=== PATIENT | female | born 1950 | race Caucasian/White ===

== ENCOUNTER 2018-07-11 20:18 | Observation (INO) | payer BC, SELFPAY ==
[2018-07-11] VITALS (33 sets, daily range): BP systolic 170–207; BP diastolic 81–112; PULSE 75–93; RESP 11–25; TEMP 37.1; O2SAT 94–98
--- NOTE | 2018-07-11 20:36 | DI.RAD_ITS ---
SYMPTOMS/DIAGNOSIS: RIGHT THEN LEFT CHEST PAIN PORTABLE CHEST: There are no prior comparison exams. The heart size is normal. The aorta is mildly tortuous. Leads overlie the chest. There are mild fibrotic changes. No superimposed infiltrate, effusion or pulmonary edema is seen. IMPRESSION: No acute abnormality.
--- NOTE | 2018-07-11 20:37 | W.ED.GENAD ---
Discharge Plan Disposition Patient Disposition: [facility] INPATIENT Condition: Good Discharge Details Chief Complaint: Chest Pain Clinical Impression: Chest pain Primary Care Provider: Letty,Local ED Provider: Karl Villa Home Meds and New Rx's Prescriptions: No Action No Known Home Meds RF: 0 Medical Decision Making 68-year-old female who is visiting this area from her home in [place], [place] (Driving in private vehicle). She states she had the abrupt onset of substernal pain and pressure this evening approximately 40 minutes ago. Began on the right side and now located on the left. It was associated with nausea. She arrives in mild distress with a blood pressure 203/112 with a pulse of 89. Denies any ongoing chronic medical issues or medications. Does state that she has had chest pain similar to this at rest approximately one time a month for quite a while. Patient placed on a nuclear monitoring technician, IV access established, given a 250 cc fluid bolus , aspirin and sublingual nitro glycerin x1. Her pain diminished from 8 out of 10 to 4 out of 10 and her blood pressure improved to 180/92, and then to 174/89 with no complaint of discomfort. Differential diagnosis includes hypertensive urgency, acute coronary syndrome, must exclude PE, pneumothorax, dissection. Chest x-ray without acute findings. Laboratory analysis reveals unremarkable CBC, comprehensive panel, troponin. D-dimer is elevated and patient referred for CT scan of the chest to rule out PE. CT without PE or dissection. Patient remains pain-free. Will admit for further risk stratification. Lab Data Lab results reviewed: Yes I reviewed the patient's lab results. Laboratory Results - last 24 hr 07/11/18 07/11/18 07/11/18 20:40 20:40 20:40 WBC 6.20 RBC 4.45 Hgb 14.1 Hct 41.1 MCV 92.4 MCH 31.7 MCHC 34.3 RDW 13.1 Plt Count 235 MPV 10.5 Immature Gran % 0.3 Neutrophils % 43.7 Lymphocytes % 44.8 Monocytes % 6.9 Eosinophils % 3.7 Basophils % 0.6 Absolute Neutrophils 2.70 Absolute Lymphocytes 2.78 Absolute Monocytes 0.43 Absolute Eosinophils 0.23 Absolute Basophils 0.04 PT 9.3 INR 0.9 APTT 21.4 D-Dimer 920 H Sodium 143 Potassium 4.1 Chloride 103 Carbon Dioxide 31.8 Anion Gap 8.2 BUN 17 Creatinine 1.08 H Estimated GFR/1.73 m2 50.16 Glucose 123 H Calcium 9.9 Magnesium 2.2 Total Bilirubin 0.3 AST 20 ALT 39 Alkaline Phosphatase 88 Troponin I < 0.02 NT-Pro-B Natriuret Pep 123 Total Protein 8.0 Albumin 4.0 ECG Data Attestation: I personally reviewed and interpreted this ECG (s) as follows: Prior ECG tracings: not available for review Interpretation: Normal sinus rhythm with a rate of 90, the QRS is narrow, there is nonspecific ST flattening present in aVL and V2. There is no ST segment elevation HPI General Mode of arrival: ambulatory. Date/Time Provider Initiated Documentation: 07/11/18 20:29. Limitations to Documentation: no limitations. Information obtained by: patient and family. History of Present Illness 68 year old F presents to the emergency department with the chief complaint of Abrupt onset chest pain and pressure 40 minutes ago, described as moderate and similar to prior episodes, Quality is described as dull and constant, and is localized to the chest, left and right. Patient started experiencing this minute(s) and it has been constant. No relieving factors improve symptom(s), No exacerbating factors reported . Patient notes loss of appetite. Patient did receive the following treatments prior to arrival, none Related Data Home Medications Medication Instructions Recorded Confirmed Unknown [No Known Home Meds] 07/11/18 07/11/18 Allergies Allergy/AdvReac Type Severity Reaction Status Date / Time morphine AdvReac Intermediate Other (See Unverified 07/11/18 20:37 Comment) General Stated Complaint: Chest Pain PATRICIA: 2 Review of Systems Review of Systems 8 systems reviewed and otherwise negative [facility] Social History Smoking/Tobacco Use Status: Never Alcohol Intake: never Drug use: Never Do you feel safe at home: Yes Do you feel safe in your relationship?: Yes Exam Narrative Exam Narrative: GEN: awake, alert, oriented 3. Pleasant, well groomed, interactive. HEAD: Normocephalic, atraumatic ENT: Mucous membranes moist, oropharynx unremarkable, External ear exam unremarkable EYES: PERRL, EOMI NECK: Full ROM, no YUE, no menigismus CHEST/RESP: Nontender, clear to auscultation bilateral, no wheeze/rhonchi/rales CARDIOVASCULAR: RRR, no murmur, rub kaden. 2+ Rad pulse bilateral ABDOMEN: Soft, nontender, no mass. +Bowel sounds EXT: Full ROM, no edema, no rash Neuro: Grossly normal neurologic exam, conversant, interactive. Psych: Speech fluent, thoughts congruent, affect normal Course Vital Signs Temperature 37.1 C 07/11/18 20:25 Pulse 89 07/11/18 20:25 Respiratory Rate 14 07/11/18 20:25 Blood Pressure 203/112 H 07/11/18 20:25 Pulse Oximetry 96 07/11/18 20:25 Temperature 37.1 C 07/11/18 20:25 Temperature Source Temporal Artery Scan 07/11/18 20:25 Pulse 89 07/11/18 20:25 Respiratory Rate 14 07/11/18 20:31 Respiratory Effort 07/11/18 20:31 Respiratory Depth Normal 07/11/18 20:31 Blood Pressure 203/112 H 07/11/18 20:25 Pulse Oximetry 96 07/11/18 20:25 Oxygen Delivery Method Room Air 07/11/18 20:25 Oxygen Flow Rate 0 07/11/18 20:25 Pain Level 8 07/11/18 20:25
--- NOTE | 2018-07-11 20:40 | ED.GENADUL_ITS ---
Discharge Plan Disposition Patient Disposition: [facility] INPATIENT Condition: Good Discharge Details Chief Complaint: Chest Pain Clinical Impression: Chest pain Primary Care Provider: Letty,Local ED Provider: Karl Villa Home Meds and New Rx's Prescriptions: No Action No Known Home Meds RF: 0 Medical Decision Making 68-year-old female who is visiting this area from her home in [place], [place] (Driving in private vehicle). She states she had the abrupt onset of substernal pain and pressure this evening approximately 40 minutes ago. Began on the right side and now located on the left. It was associated with nausea. She arrives in mild distress with a blood pressure 203/112 with a pulse of 89. Denies any ongoing chronic medical issues or medications. Does state that she has had chest pain similar to this at rest approximately one time a month for quite a while. Patient placed on a cardiac catheterization technician, IV access established, given a 250 cc fluid bolus , aspirin and sublingual nitro glycerin x1. Her pain diminished from 8 out of 10 to 4 out of 10 and her blood pressure improved to 180/92, and then to 174/89 with no complaint of discomfort. Differential diagnosis includes hypertensive urgency, acute coronary syndrome, must exclude PE, pneumothorax, dissection. Chest x-ray without acute findings. Laboratory analysis reveals unremarkable CBC, comprehensive panel, troponin. D- dimer is elevated and patient referred for CT scan of the chest to rule out PE. CT without PE or dissection. Patient remains pain-free. Will admit for further risk stratification. Lab Data Lab results reviewed: Yes I reviewed the patient's lab results. Laboratory Results - last 24 hr 07/11/18 07/11/18 07/11/18 20:40 20:40 20:40 WBC 6.20 RBC 4.45 Hgb 14.1 Hct 41.1 MCV 92.4 MCH 31.7 MCHC 34.3 RDW 13.1 Plt Count 235 MPV 10.5 Immature Gran % 0.3 Neutrophils % 43.7 Lymphocytes % 44.8 Monocytes % 6.9 Eosinophils % 3.7 Basophils % 0.6 Absolute Neutrophils 2.70 Absolute Lymphocytes 2.78 Absolute Monocytes 0.43 Absolute Eosinophils 0.23 Absolute Basophils 0.04 PT 9.3 INR 0.9 APTT 21.4 D-Dimer 920 H Sodium 143 Potassium 4.1 Chloride 103 Carbon Dioxide 31.8 Anion Gap 8.2 BUN 17 Creatinine 1.08 H Estimated GFR/1.73 m2 50.16 Glucose 123 H Calcium 9.9 Magnesium 2.2 Total Bilirubin 0.3 AST 20 ALT 39 Alkaline Phosphatase 88 Troponin I < 0.02 NT-Pro-B Natriuret Pep 123 Total Protein 8.0 Albumin 4.0 ECG Data Attestation: I personally reviewed and interpreted this ECG (s) as follows: Prior ECG tracings: not available for review Interpretation: Normal sinus rhythm with a rate of 90, the QRS is narrow, there is nonspecific ST flattening present in aVL and V2. There is no ST segment elevation HPI General Mode of arrival: ambulatory . Date/Time Provider Initiated Documentation: 07/11/18 20:29 . Limitations to Documentation: no limitations . Information obtained by: patient and family . History of Present Illness 68 year old F presents to the emergency department with the chief complaint of Abrupt onset chest pain and pressure 40 minutes ago, described as moderate and similar to prior episodes, Quality is described as dull and constant, and is localized to the chest, left and right. Patient started experiencing this minute(s) and it has been constant. No relieving factors improve symptom(s), No exacerbating factors reported . Patient notes loss of appetite. Patient did receive the following treatments prior to arrival, none Related Data Home Medications Medication Instructions Recorded Confirmed Unknown [No Known Home Meds] 07/11/18 07/11/18 Allergies Allergy/AdvReac Type Severity Reaction Status Date / Time morphine AdvReac Intermediate Other (See Unverified 07/11/18 20:37 Comment) General Stated Complaint: Chest Pain PATRICIA: 2 Review of Systems Review of Systems 8 systems reviewed and otherwise negative [facility] Social History Smoking/Tobacco Use Status: Never Alcohol Intake: never Drug use: Never Do you feel safe at home: Yes Do you feel safe in your relationship?: Yes Exam Narrative Exam Narrative: GEN: awake, alert, oriented 3. Pleasant, well groomed, interactive. HEAD: Normocephalic, atraumatic ENT: Mucous membranes moist, oropharynx unremarkable, External ear exam unremarkable EYES: PERRL, EOMI NECK: Full ROM, no YUE, no menigismus CHEST/RESP: Nontender, clear to auscultation bilateral, no wheeze/rhonchi/rales CARDIOVASCULAR: RRR, no murmur, rub kaden. 2+ Rad pulse bilateral ABDOMEN: Soft, nontender, no mass. +Bowel sounds EXT: Full ROM, no edema, no rash Neuro: Grossly normal neurologic exam, conversant, interactive. Psych: Speech fluent, thoughts congruent, affect normal Course Vital Signs Temperature 37.1 C 07/11/18 20:25 Pulse 89 07/11/18 20:25 Respiratory Rate 14 07/11/18 20:25 Blood Pressure 203/112 H 07/11/18 20:25 Pulse Oximetry 96 07/11/18 20:25 Temperature 37.1 C 07/11/18 20:25 Temperature Source Temporal Artery Scan 07/11/18 20:25 Pulse 89 07/11/18 20:25 Respiratory Rate 14 07/11/18 20:31 Respiratory Effort 07/11/18 20:31 Respiratory Depth Normal 07/11/18 20:31 Blood Pressure 203/112 H 07/11/18 20:25 Pulse Oximetry 96 07/11/18 20:25 Oxygen Delivery Method Room Air 07/11/18 20:25 Oxygen Flow Rate 0 07/11/18 20:25 Pain Level 8 07/11/18 20:25
[2018-07-11] MEDS: Normal Saline 250 ML IV (20:51)
[2018-07-11] MEDS: Normal Saline Flush 10 ML SYR IVP (20:53)
[2018-07-11 21:00] LABS: Abs Immature Grans 0.02 k/cumm (0.0-0.09); Absolute Basophil Count 0.04 k/cumm (0.0-0.2); Absolute Eosinophil Count 0.23 k/cumm (0.0-0.7); Absolute Lymphocyte Count 2.78 k/cumm (1.2-3.4); Absolute Monocyte Count 0.43 k/cumm (0.11-0.7); Basophils % 0.6; Eosinophils % 3.7; HCT 41.1 % (36.0-46.0); HGB 14.1 g/dL (12.0-15.5); Immature Grans % 0.3; Lymphocytes % 44.8; Mean Corp. HGB Concentration 34.3 g/dL (32.0-36.0); Mean Corpuscular Hemoglobin 31.7 pg (27.0-33.0); Mean Corpuscular Volume 92.4 fL (80-95); Mean Platelet Volume 10.5 fL (8.0-11.0); Monocytes % 6.9; Neutrophils % 43.7; Platelet Count 235 x1000/uL (130-400); RBC 4.45 m/cumm (4.00-5.20); RBC Distribution Width 13.1 % (11.7-14.6)
[2018-07-11 21:14] LABS: INR 0.9 (0.9-1.1); PTT Activated 21.4 sec (21.0-31.4); Prothrombin Time 9.3 sec (9.3-11.0)
[2018-07-11 21:16] LABS: ALT 39 U/L (12-78); AST 20 U/L (15-37); Alkaline Phosphatase 88 U/L (46-116); Anion Gap 8.2 mmol/L (3-11); BUN 17 mg/dL (7-18); Bilirubin, Total 0.3 mg/dL (0.2-1.0); CO2 31.8 mmol/L (21.0-32.0); CREATININE 1.08 mg/dL (0.55-1.02); Calcium 9.9 mg/dL (8.5-10.1); Chloride 103 mmol/L (98-107); Estimated GFR 50.16 (mL/min/1.73m2); Glucose 123 mg/dL (70-100); Magnesium 2.2 mg/dL (1.8-2.4); NT-proBNP 123 pg/mL; Potassium 4.1 mmol/L (3.5-5.1); Sodium 143 mmol/L (136-145)
[2018-07-11 21:17] LABS: Troponin I < 0.02 ng/mL (0.00-0.06)
[2018-07-11 21:26] LABS: D-Dimer 920 ng/mlFEU (<500)
--- NOTE | 2018-07-11 21:29 | DI.CT_ITS ---
SYMPTOMS/DIAGNOSIS: RIGHT THEN LEFT CHEST PAIN, ELEVATED D-DIMER CHEST CT FOR PULMONARY EMBOLISM: CT angiography was performed with multi slice acquisition and multi planar and 3D reconstruction. Comparison was made with chest x-ray performed earlier the same day. There is no evidence of pulmonary emboli or aortic dissection. The aorta is mildly tortuous. There is no evidence of an aneurysm. There are no pleural or pericardial effusions. The lungs are not well inflated and show respiratory motion. There are dependent changes seen posteriorly. No mass or adenopathy is seen. IMPRESSION: No evidence of pulmonary emboli or other acute abnormality. The lungs are not well evaluated due to poor inflation and respiratory motion.
--- NOTE | 2018-07-11 21:38 | DI.VRAD_ITS ---
EXAM: XR Chest, 1 View EXAM DATE/TIME: 07/11/2018 8:37 PM CLINICAL HISTORY: 68 years old, female; Chest pain; Other: Varying sides TECHNIQUE: Imaging protocol: XR of the chest, 1 view. COMPARISON: No relevant prior studies available. FINDINGS: Tubes, catheters and devices: Telemetry leads overlie the thorax. Lungs: Linear opacities in the left base, likely atelectasis. No focal consolidation is seen. Pleural space: Unremarkable. No pleural effusion. No pneumothorax. Heart/Mediastinum: Heart size is within normal limits. Atherosclerotic calcifications are present in the tortuous thoracic aorta. Bones/joints: Osseous degenerative changes commensurate with age noted. No acute fractures are seen. IMPRESSION: No acute findings. Dictated and Authenticated by: Nadir Dow MD. Ordering:MICHELLE Barajas MD
[2018-07-11] MEDS: Omnipaque 350 MG/ML 100 ML BTL IJ (21:44)
--- NOTE | 2018-07-11 22:52 | DI.VRAD_ITS ---
EXAM: CT Angiography Chest With Contrast EXAM DATE/TIME: 07/11/2018 9:46 PM CLINICAL HISTORY: 68 years old, female; Chest pain; Other: Varying sides; Patient HX: Elevated d-dimer TECHNIQUE: Imaging protocol: Axial computed tomographic angiography images of the chest with intravenous contrast using CT angiography protocol. Coronal and sagittal reformatted images were created and reviewed. 3D rendering: MIP reconstructed images were created and reviewed. Radiation optimization: All CT scans at this facility use at least one of these dose optimization techniques: automated exposure control; mA and/or kV adjustment per patient size (includes targeted exams where dose is matched to clinical indication); or iterative reconstruction. Contrast material: OMNIPAQUE 350; Contrast volume: 70 ml; Contrast route: IV; COMPARISON: SC XR PORTABLE CHEST AP 07/11/2018 8:38 PM FINDINGS: Pulmonary arteries: Normal. No pulmonary emboli. Aorta: Mild calcified and noncalcified atherosclerotic plaques are present. Thoracic aorta is mildly tortuous. There is no thoracic aortic aneurysm or evidence of dissection. Lungs: Lung volumes are low. Linear and groundglass opacities in the dependent lungs are consistent with areas of atelectasis. No focal consolidation is seen. Calcified nodule in the left lower lobe is consistent with old granulomatous disease. The trachea and central airways are clear. Pleural space: Normal. No pneumothorax. No pleural effusion. Heart: Normal. No cardiomegaly. No pericardial effusion. Lymph nodes: Unremarkable. No enlarged lymph nodes. Bones/joints: Mild thoracic spondylosis. No acute fractures are seen. Soft tissues: Unremarkable. IMPRESSION: 1. No evidence of pulmonary embolism or aortic dissection. 2. Low lung volumes with scattered atelectasis. Otherwise negative for acute cardiopulmonary disease. Dictated and Authenticated by: Nadir Dow MD. Ordering:MICHELLE Barajas MD
[2018-07-12] VITALS (96 sets, daily range): BP systolic 138–203; BP diastolic 58–98; PULSE 49–84; RESP 9–26; TEMP 36.4–38.1; O2SAT 95–97
[2018-07-12] MEDS: Acetaminophen 325 MG TAB 650 MG PO (00:15)
--- NOTE | 2018-07-12 00:58 | W.PM.HP.N ---
Date of service: 07/12/18 Time of Service: 00:59 Assessment and Plan (1) Atypical chest pain: Start date: 07/11/18 Current visit: Yes Status: Acute This is a 68-year-old lady who is traveling from critical access hospital [facility] critical access hospital visiting towns named [place]. She has had a history of upper abdominal and retrosternal discomfort in the past which has not been as severe as today's episode. In the past it was more of a colicky type pain which would come and go. She cannot associate these symptoms with meals or activity. She did have relief from nitroglycerin and aspirin with IV fluid bolus in the ED today without EKG changes or positive troponins. She will be observed overnight on telemetry with serial cardiac enzymes with cardiology consultation in the morning and ultrasound of the gallbladder because of her history of possible gallbladder colic. She also will be placed on PPIs and discharged on this treatment until further evaluation if she is stable for discharge in the morning. At present this is not appearing to be cardiac but being nitroglycerin responsive we need to consider atypical presentation of occult coronary artery disease. (2) Hypertension: Start date: 07/11/18 Current visit: Yes Status: Acute Patient was hypertensive during her presentation to the ED and at the time I saw her. She will be placed on low-dose beta-agatha and consider continuing this until further investigation if discharged in the morning. Cardiology consultation has been ordered and if this can be accomplished further recommendations will be followed after evaluation by cardiology. Qualifiers: Hypertension type: unspecified Qualified Code(s): I10 - Essential (primary) hypertension (3) GERD (gastroesophageal reflux disease): Start date: 07/11/18 Current visit: Yes Status: Chronic Patient has had chronic symptoms of gastroesophageal reflux disease and treating this with jece-awd-wsgyjyj medication. We will start her on IV Protonix and converted to oral therapy to be continued until she can have further investigation by her usual caregiver with EGD indicated eventually if cardiac disease is ruled out and gallbladder disease is not found with ultrasound. Even with a negative ultrasound of the gallbladder, HIDA scan should be considered for completion but this could be accomplished in follow-up with her usual caregiver. Qualifiers: Esophagitis presence: esophagitis presence not specified Qualified Code(s): K21.9 - Gastro-esophageal reflux disease without esophagitis History of Present Illness Chief Complaint: Retrosternal chest pain responsive to nitroglycerin Narrative: This is a 68-year-old lady who is traveling with her visiting towns named [place] in various states. They originated from [place] and have been driving by private vehicle. Patient is on no prescribed medical therapy but does have a history of intermittent use of Tums and has been on PPIs [id number] for reflux symptoms in the past. She has occasional chest discomfort and upper abdominal discomfort at rest and with exertion over the last several months. Today she had a more severe episode within an hour before reporting to the ED which began on the right side of her upper abdomen and lower chest and moved to the left and to her back. She has associated nausea and it was retrosternal. She denies any other radiation of pain and she had no shortness of breath or diaphoresis. She had similar episodes of discomfort intermittently about once monthly increasing in intensity as of today. In the emergency room, her pain was 8 out of 10 and dropped to 4 out of 10 and then completely relieved with sublingual nitroglycerin, aspirin and an IV fluid bolus. At the time I saw the patient she was not having discomfort. She did have a hypertensive response to her pain. She is on no medical therapy chronically except for egav-pwu-efkiozs meds as above and has never been a drinker or smoker. She worked up to this last year and considers herself healthy. She does check her blood pressure at home occasionally having a blood pressure cuff for her and is always normal with a systolic less than 140 and diastolic less than 90. She is thin and healthy. With further questioning she may be having more right upper quadrant abdominal discomfort with radiation to her back previous to the above described episodes. The patient does have a history of gastroesophageal reflux as mentioned above. ED evaluation revealed no acute ST-T changes on EKG with sinus tachycardia, negative initial troponin and negative imaging. It was determined that she should be observed overnight on telemetry with serial cardiac enzymes and cardiology consultation in the morning if available. Because of her atypical chest pain and right upper quadrant symptoms in the past which sounded more like gallbladder colic, ultrasound of the gallbladder will be ordered for the morning. Pertinent review of systems otherwise unrevealing patient is very active and unrestricted in her activity. She has noticed no change in her bowel habits or GI symptoms other than her upper abdominal discomfort and nausea associate with retrosternal chest pressure as discussed above. Review of Systems Review of Systems 13 point review of systems as per HPI otherwise unrevealing or stable. [facility] Social History Smoking/Tobacco Use Status: Never Alcohol Intake: never Drug use: Never Do you feel safe at home: Yes Do you feel safe in your relationship?: Yes Meds Home Medications Medication Instructions Recorded Confirmed Type Unknown [No Known Home Meds] 07/11/18 07/11/18 History Allergies Allergy/AdvReac Type Severity Reaction Status Date / Time morphine AdvReac Intermediate Other (See Unverified 07/11/18 20:37 Comment) Exam Narrative Exam Narrative: General: Patient is well-developed and well-nourished appearing younger than stated age in no acute distress. She is alert and oriented x3. HEENT: Normocephalic with eyes revealing pupils equal and reactive to light symmetrically, extraocular movement intact and sclera anicteric. Oropharynx with moist mucosa. Ears normal. Neck: Supple without JVD. No carotid bruits. Back: Normal posture with no CVA tenderness. Lungs: Clear to auscultation and percussion. No focalizing rales or rhonchi. Heart: Regular rate and rhythm with no murmurs or gallops. No rubs. Breast: Not examined. Abdomen: Scaphoid contour, soft and nontender palpation without palpable. Bowel sounds positive in all quadrants. Negative Naik sign. Genitalia and rectal exam: Deferred. Extremities: No clubbing cyanosis or edema with peripheral pulses intact. Fair range of motion of all joints. Neuro: Cranial nerves II through XII grossly intact, motor without focalizing finding that patient had a normal strength. Skin: Warm, pink and dry. Left hand over sun exposed areas. Psych: Normal affect and thought processes, remote and recent memory intact. Results Imaging Imaging Studies: EXAM: CT Angiography Chest With Contrast EXAM DATE/TIME: 07/11/2018 9:46 PM CLINICAL HISTORY: 68 years old, female; Chest pain; Other: Varying sides; Patient HX: Elevated d-dimer TECHNIQUE: Imaging protocol: Axial computed tomographic angiography images of the chest with intravenous contrast using CT angiography protocol. Coronal and sagittal reformatted images were created and reviewed. 3D rendering: MIP reconstructed images were created and reviewed. Radiation optimization: All CT scans at this facility use at least one of these dose optimization techniques: automated exposure control; mA and/or kV adjustment per patient size (includes targeted exams where dose is matched to clinical indication); or iterative reconstruction. Contrast material: OMNIPAQUE 350; Contrast volume: 70 ml; Contrast route: IV; COMPARISON: SC XR PORTABLE CHEST AP 07/11/2018 8:38 PM FINDINGS: Pulmonary arteries: Normal. No pulmonary emboli. Aorta: Mild calcified and noncalcified atherosclerotic plaques are present. Thoracic aorta is mildly tortuous. There is no thoracic aortic aneurysm or evidence of dissection. Lungs: Lung volumes are low. Linear and groundglass opacities in the dependent lungs are consistent with areas of atelectasis. No focal consolidation is seen. Calcified nodule in the left lower lobe is consistent with old granulomatous disease. The trachea and central airways are clear. Pleural space: Normal. No pneumothorax. No pleural effusion. Heart: Normal. No cardiomegaly. No pericardial effusion. Lymph nodes: Unremarkable. No enlarged lymph nodes. Bones/joints: Mild thoracic spondylosis. No acute fractures are seen. Soft tissues: Unremarkable. IMPRESSION: 1. No evidence of pulmonary embolism or aortic dissection. 2. Low lung volumes with scattered atelectasis. Otherwise negative for acute cardiopulmonary disease. Dictated and Authenticated by: Nadir Dow MD. EXAM: XR Chest, 1 View EXAM DATE/TIME: 07/11/2018 8:37 PM CLINICAL HISTORY: 68 years old, female; Chest pain; Other: Varying sides TECHNIQUE: Imaging protocol: XR of the chest, 1 view. COMPARISON: No relevant prior studies available. FINDINGS: Tubes, catheters and devices: Telemetry leads overlie the thorax. Lungs: Linear opacities in the left base, likely atelectasis. No focal consolidation is seen. Pleural space: Unremarkable. No pleural effusion. No pneumothorax. Heart/Mediastinum: Heart size is within normal limits. Atherosclerotic calcifications are present in the tortuous thoracic aorta. Bones/joints: Osseous degenerative changes commensurate with age noted. No acute fractures are seen. IMPRESSION: No acute findings. Dictated and Authenticated by: Nadir Dow MD. Labs : 07/11/18 20:40 07/11/18 20:40 Laboratory Results - last 24 hr 07/11/18 07/11/18 07/11/18 20:40 20:40 20:40 WBC 6.20 RBC 4.45 Hgb 14.1 Hct 41.1 MCV 92.4 MCH 31.7 MCHC 34.3 RDW 13.1 Plt Count 235 MPV 10.5 Immature Gran % 0.3 Neutrophils % 43.7 Lymphocytes % 44.8 Monocytes % 6.9 Eosinophils % 3.7 Basophils % 0.6 Absolute Neutrophils 2.70 Absolute Lymphocytes 2.78 Absolute Monocytes 0.43 Absolute Eosinophils 0.23 Absolute Basophils 0.04 PT 9.3 INR 0.9 APTT 21.4 D-Dimer 920 H Sodium 143 Potassium 4.1 Chloride 103 Carbon Dioxide 31.8 Anion Gap 8.2 BUN 17 Creatinine 1.08 H Estimated GFR/1.73 m2 50.16 Glucose 123 H Calcium 9.9 Magnesium 2.2 Total Bilirubin 0.3 AST 20 ALT 39 Alkaline Phosphatase 88 Troponin I < 0.02 NT-Pro-B Natriuret Pep 123 Total Protein 8.0 Albumin 4.0 Last Vital Signs Temp 37.1 C 07/11/18 20:25 Pulse 76 07/11/18 23:01 Resp 19 07/11/18 22:20 BP 171/81 H 07/11/18 23:01 Pulse Ox 96 07/11/18 23:10
[2018-07-12] MEDS: Aspirin 81 MG CHEW 324 MG CH (02:23)
[2018-07-12] MEDS: Metoprolol 25 MG TAB PO (02:48)
[2018-07-12] MEDS: Pantoprazole 40 MG VIAL IVP ×2 (03:07→10:01)
[2018-07-12] MEDS: Heparin 5,000 UNITS/ML VIAL 5000 UNITS SC ×2 (03:07→12:00)
[2018-07-12 05:39] LABS: ALT 40 U/L (12-78); AST 28 U/L (15-37); Albumin 3.6 g/dL (3.4-5.0); Alkaline Phosphatase 83 U/L (46-116); Anion Gap 3.8 mmol/L (3-11); BUN 18 mg/dL (7-18); Bilirubin, Total 0.3 mg/dL (0.2-1.0); CO2 29.2 mmol/L (21.0-32.0); CREATININE 0.95 mg/dL (0.55-1.02); Calcium 9.7 mg/dL (8.5-10.1); Chloride 104 mmol/L (98-107); Estimated GFR 58.16 (mL/min/1.73m2); Glucose 122 mg/dL (70-100); Sodium 137 mmol/L (136-145); Total Protein 7.2 g/dL (6.4-8.2)
[2018-07-12 05:50] LABS: Troponin I < 0.02 ng/mL (0.00-0.06)
--- NOTE | 2018-07-12 08:00 | DI.US_ITS ---
SYMPTOM/DIAGNOSIS: ATYPICAL CHEST PAIN, ? GB COLIC ABDOMEN ULTRASOUND: There are no prior comparison exams. The liver is normal in size and echogenicity. No biliary dilatation or focal liver lesions are seen. The gallbladder is unremarkable, without evidence of stones or wall thickening. Pancreas, spleen, kidneys and aorta are unremarkable. There is no right upper quadrant fluid. IMPRESSION: Negative abdomen ultrasound. No gallbladder abnormality is identified.
[2018-07-12 09:21] LABS: Cholesterol 223 mg/dL (50-200); HDL Cholesterol 62 mg/dL (40-60); LDL CHOLESTEROL 138 mg/dL (<100); Triglyceride 169 mg/dL (30-150)
[2018-07-12] MEDS: Normal Saline Flush 10 ML SYR IVP (10:04)
[2018-07-12 10:07] LABS: Abs Immature Grans 0.01 k/cumm (0.0-0.09); Absolute Basophil Count 0.04 k/cumm (0.0-0.2); Absolute Lymphocyte Count 1.72 k/cumm (1.2-3.4); Absolute Neutrophil Count 3.85 k/cumm (1.2-6.7); Basophils % 0.6; Eosinophils % 3.2; HCT 40.7 % (36.0-46.0); HGB 13.7 g/dL (12.0-15.5); Immature Grans % 0.2; Lymphocytes % 27.7; Mean Corp. HGB Concentration 33.7 g/dL (32.0-36.0); Mean Corpuscular Hemoglobin 31.3 pg (27.0-33.0); Mean Corpuscular Volume 92.9 fL (80-95); Mean Platelet Volume 10.5 fL (8.0-11.0); Monocytes % 6.4; Neutrophils % 61.9; Platelet Count 219 x1000/uL (130-400); RBC 4.38 m/cumm (4.00-5.20); White Blood Cell Count 6.22 k/cumm (4.4-10.8)
[2018-07-12] MEDS: Aspirin E.C. 81 MG TABEC PO (10:10)
--- NOTE | 2018-07-12 12:15 | MERGEMPI_ITS ---
*[facility]* *[facility]* [address] [place] [address] Myocardial Perfusion Imaging - SPECT Pardeep protocol Date of study: 07/12/2018 *PATIENT PRESENTATION* Height: 152.4cm (60in) Blood Pressure: Weight: 53.5kg (117.7lb) BSA: 1.51m^2 Referring physician: Elba Kothari Ordering physician: Elba Kothari Impressions: Normal perfusion by Tc99m Sestamibi Imaging. Summary: 1. Myocardial perfusion imaging: No myocardial perfusion defects noted. 2. The calculated left ventricular ejection fraction after stress: 82%. 3. Stress: The target heart rate was achieved. Indication: R07.9. History: REASON FOR VISIT: THIS IS AN INPATIENT BEING MONITORED ON TELEMETRY FOR ATYPICAL CHEST PAIN. IN THE ER PATIENT HAD RELIEF OF HER SYMPTOMS WTH NITROGLYCERIN, ASPIRIN AND AN IV FLUID BOLUS. HER EKG AND TROPONINS WERE ASSESSED WERE ARE NEGATIVE FOR ACS. Risk factors: Cholesterol: 223mg/dl. HDL: 62mg/dl. LDL: 138mg/dl. Triglycerides: 169mg/dl. ALLERGIES: MORPHINE. MEDICATIONS: ASPIRIN 81 MG DAILY. ATORVASTATIN CALCIUM 20 MG Q HS. HEPARIN SODIUM 5,000 UNITS SC Q 8 HRS. METOPROLOL TARTRATE 12.5 MG BID. NITROGLYCERIN 0.4 MG SL PRN PANTAPRAZOLE SODIUM 40 MG IVP DAILY. Imaging Technique: Protocol: Pardeep protocol. Acquisition: Gated SPECT; 1 day - rest/stress. The patient was imaged in the supine position. Attenuation correction used. Isotope administration: - Rest. Tc[99m]-sestamibi. Dose: 9mCi. Injection time: 12:30 PM. Injection to stress time: 00:45. - Stress. Tc[99m]-sestamibi. Dose: 29.8mCi. Injection time: 02:30 PM. 1-2 min before end of exercise Stress protocol: + +---+ + !Stage !HR !BP (mmHg) ! + +---+ + !Baseline supine !62 !180/90 (120) ! + +---+ + !Baseline standing !59 !186/98 (127) ! + +---+ + !Stage I; 1.7mph, 10degrees; 3 min !99 !190/100 (130)! + +---+ + !Stage II; 2.5mph, 12degrees; 3 min !121!190/100 (130)! + +---+ + !Stage III; 3.4mph, 14degrees; 3 min!132! ! + +---+ + !Peak stress !132! ! + +---+ + !Recovery; 1 min !110!210/100 (137)! + +---+ + !Recovery; 4 min !81 !200/98 (132) ! + +---+ + !Recovery; 6 min !80 !190/84 (119) ! + +---+ + * Stress results: Maximal heart rate during stress was 132bpm (88% of maximal predicted heart rate). The maximal predicted heart rate was 150bpm. The target heart rate was achieved. The rate-pressure product for the peak heart rate and blood pressure was 62894lb Hg/min. Stress ECG: TREADMILL PORTION OF STRESS TEST ENDED IN 8 MINUTES & 1 SECOND DUE TO FATIGUE HYPERTENSIVE BLOOD PRESSURES PRIOR TO EXERCISE. NORMAL HEART RATE AND BLOOD PRESSURE RESPONSE TO EXERCISE. MAX HR = 132 % OF TARGET = 88 NO ECTOPY APPROXIMATE METS ACHIEVED =10.16 NO ANGINA NO SIGNIFICANT ST SEGMENT CHANGES ABOVE AVERAGE FUNCTIONAL CAPACITY FOR EXERCISE. Myocardial perfusion: Imaging information: gated. No myocardial perfusion defects noted. Ventricular Function (Wall Motion): The calculated left ventricular ejection fraction after stress: 82%. Study data: Alex Gaytan MD supervised and was readily available during the procedure. This study was interpreted by [facility]. Study status: Routine. Consent: The risks, benefits, and alternatives to the procedure were explained to the patient and informed consent was obtained. Procedure: Initial setup. A baseline ECG was recorded. Surface ECG leads and manual cuff blood pressure measurements were monitored. Heart sounds: Normal. Lung sounds: Normal. Treadmill exercise testing was performed using the Pardeep protocol. Study completion: All catheters inserted during the procedure were removed. The patient tolerated the procedure well and was discharged from the lab. Discharge: The patient left the laboratory in stable condition. Birthdate: Patient birthdate: 1950. Sex: Gender: female. Study date: Study date: 07/12/2018. Study time: 00:01 AM. Electronically signed by Alex Gaytan MD 07/12/2018 17:26
--- NOTE | 2018-07-12 16:01 | PDOC.CMIN ---
Care Management Initial Assess REASON FOR HOSPITALIZATION:: Atypical Chest Pain PAST MEDICAL HISTORY/PAST SURGICAL HISTORY:: No pertinent medical history. 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 The couple has been traveling across country in their [place] seeing all the towns named [place]. Beryl reports they anticipated being in [place], [place] today and then off to [place]. She reports being independent in the community at baseline. CURRENT FUNCTIONAL STATUS:: Beryl was lying in bed, elevated in position when CM met with her. Carmelo was at her bedside. Both were pleasantly engaging in interaction and shared no concerns with treatment planning, work up and likely discharge if results are negative. ADVANCE DIRECTIVES:: None on file at [facility]. Has patient been provided with information about the portal?: No Did the patient sign up for the portal?: No CODE STATUS:: Full Code INSURANCE COVERAGE / FINANCIAL ISSUES:: MCR. BC MCR Replacement CURRENT HOME/COMMUNITY SERVICES/EQUIPMENT:: No current services or equipment. PRIMARY CARE PHYSICIAN:: No local. POTENTIAL DISCHARGE NEEDS:: Follow up appointments, cardiac work up, abdominal ultrasound. PATIENT/FAMILY EDUCATION NEEDS:: Review of discharge instructions, discuss Ask Me Three. ANTICIPATED BARRIERS TO DISCHARGE:: None identified. TRANSPORTATION:: Via private vehicle with her , Carmelo. PLAN:: Beryl will return home when ready per MD. She will follow up with her PCP and plan of care as prescribed. She will transport via private vehicle with her , Carmelo.
--- NOTE | 2018-07-12 16:11 | INITIAL_ITS ---
Care Management Initial Assess REASON FOR HOSPITALIZATION:: Atypical Chest Pain PAST MEDICAL HISTORY/PAST SURGICAL HISTORY:: No pertinent medical history. 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 The couple has been traveling across country in their [place] seeing all the towns named [place]. Beryl reports they anticipated being in [place], [place] today and then off to [place]. She reports being independent in the community at baseline. CURRENT FUNCTIONAL STATUS:: Beryl was lying in bed, elevated in position when CM met with her. Carmelo was at her bedside. Both were pleasantly engaging in interaction and shared no concerns with treatment planning, work up and likely discharge if results are negative. ADVANCE DIRECTIVES:: None on file at [facility]. Has patient been provided with information about the portal?: No Did the patient sign up for the portal?: No CODE STATUS:: Full Code INSURANCE COVERAGE / FINANCIAL ISSUES:: MCR. BC MCR Replacement CURRENT HOME/COMMUNITY SERVICES/EQUIPMENT:: No current services or equipment. PRIMARY CARE PHYSICIAN:: No local. POTENTIAL DISCHARGE NEEDS:: Follow up appointments, cardiac work up, abdominal ultrasound. PATIENT/FAMILY EDUCATION NEEDS:: Review of discharge instructions, discuss Ask Me Three. ANTICIPATED BARRIERS TO DISCHARGE:: None identified. TRANSPORTATION:: Via private vehicle with her , Carmelo. PLAN:: Beryl will return home when ready per MD. She will follow up with her PCP and plan of care as prescribed. She will transport via private vehicle with her , Carmelo.
--- NOTE | 2018-07-12 17:27 | DSE_ITS ---
Date of service: 07/12/18 Time of Service: 17:24 DS: Diagnosis Discharge Diagnosis (1) Atypical chest pain: Status: Acute (2) Hypertension: Status: Acute (3) GERD (gastroesophageal reflux disease): Status: Chronic Discharge Plan Disposition Patient Disposition: HOME Condition: Good Discharge Details Reason For Visit: ATYPICAL CHEST PAIN Admit Date/Time: 07/12/18 00:46 Admit Provider: Elmer Huynh Attending Provider: Elmer Huynh Primary Care Provider: Virginia Villarreal Hospital Course Hospital Course: Ms Mcfadden is a 68 year old female from [place], [place], vacationing in [place], with PMHx of hypertension and GERD, who was observed at [facility] hospitalist service on 07/12/18 for atypical chest pain, which by description was more of an epigastric pain radiating up substernally and to the right shoulder. The patient was ruled out for acute coronary syndrome and PE and underwent a nuclear stress test which was negative for ischemia and demonstrated a preserved EF. She did not have a recurrence of symptoms since arrival to the hospital. Because her initial chest pain was relieved with nitroglycerin, there is a suspicion that she has esophageal spasms triggered by GERD. We are recommending that she resume taking outpatient prilosec, which she has not taken for some time and follow up with her PCP. We are also starting her on amlodipine for the combination of her hypertension as well as the possibility of esophageal spasm. Her SBP did go up to 170-180's here on several occasions. She was instructed to go to the nearest ED if her symptoms recur and to take frequent breaks while traveling back to [place]. Home Meds and New Rx's Prescriptions: New omeprazole 20 mg tablet,delayed release (DR/EC) 20 mg PO DAILY Qty: 30 RF: 0 amlodipine [Norvasc] 5 mg tablet 5 mg PO DAILY Qty: 30 RF: 0 Discharge Instructions Instructions: Omeprazole (By mouth), Amlodipine (By mouth), Chest Pain (DC), Gastroesophageal Reflux Disease (DC), Esophageal Spasm (GEN), Hypertension (DC) Additional Instructions: Return to the nearest ED if you have any more chest pain, or if you experience dizziness, bleeding, or shortness of breath. Take frequent breaks while driving home. Follow up with your PCP within 5-7 days, if possible. Activity:: Activity as Tolerated Equipment/Supplies:: No Equipment Needed Diet:: Low acid, low sodium Discharge Orders Discharge Orders: Discharge Order (Routine); Ordered 07/12/18 Ordered By: Elba Kothari Exam Narrative Exam Narrative: General: Very pleasant middle-aged female, laying comfortably in bed, NAD HEENT: EOMI, MMM Heart: RRR, very quiet CHUCK Lungs: CTAB GI: abdomen is soft, nontender, nondistended Extremities: no e/c/c BLE's DS: Data Vitals/I&O Vitals and I&O: Vital Signs Temperature 36.4 C L 07/12/18 09:30 Temperature Source Temporal Artery Scan 07/12/18 09:30 Pulse 70 07/12/18 15:00 Pulse Rhythm Regular 07/12/18 07:30 Pulse 68 07/12/18 17:10 Respiratory Rate 23 07/12/18 17:10 Respiratory Effort Non-Labored 07/12/18 07:30 Respiratory Depth Normal 07/12/18 07:30 Respiratory Pattern Normal 07/12/18 07:30 Blood Pressure 177/73 H 07/12/18 08:49 Blood Pressure Mean 97 07/12/18 08:38 Pulse Oximetry 95 07/12/18 08:49 Oxygen Delivery Method Room Air 07/12/18 08:49 Oxygen Flow Rate 0 07/12/18 08:49 Pain Level 1 07/12/18 08:49 Intake & Output 07/11/18 07/12/18 07/12/18 23:59 11:59 23:59 Intake Total 370 / 370 Output Total 650 / 650 Balance -280 / -280 Weight 55.6 kg 53.5 kg Intake: IV 250 / 250 Oral 120 / 120 Output: Urine 650 / 650 Other: Urine Color Pale Yellow Urine Appearance Clear Urine Odor None Voiding Methods Bedside Commode Completed studies during hospitalization [Text1]: CXR 07/11/18: No acute abnormality CTA chest 07/11/18: No evidence of pulmonary emboli or other acute abnormality. The lungs are not well evaluated due to poor inflation and respiratory motion. US abdomen 07/12/18: Negative abdomen ultrasound. No gallbladder abnormality is identified. Nuclear stress test 07/12/18: Normal perfusion by [id number] Sestam[facility]. Summary: 1. Myocardial perfusion imaging: No myocardial perfusion defects noted. 2. The calculated left ventricular ejection fraction after stress: 82%. 3. Stress: The target heart rate was achieved. Labs on day of discharge: Labs from last 24 hours 07/12/18 07/12/18 07/12/18 09:45 04:58 04:58 WBC 6.22 RBC 4.38 Hgb 13.7 Hct 40.7 MCV 92.9 MCH 31.3 MCHC 33.7 RDW 13.0 Plt Count 219 MPV 10.5 Immature Gran % 0.2 Neutrophils % 61.9 Lymphocytes % 27.7 Monocytes % 6.4 Eosinophils % 3.2 Basophils % 0.6 Absolute Neutrophils 3.85 Absolute Lymphocytes 1.72 Absolute Monocytes 0.40 Absolute Eosinophils 0.20 Absolute Basophils 0.04 PT INR APTT D-Dimer Sodium 137 Potassium 4.0 Chloride 104 Carbon Dioxide 29.2 Anion Gap 3.8 BUN 18 Creatinine 0.95 Estimated GFR/1.73 m2 58.16 Glucose 122 H Calcium 9.7 Magnesium Total Bilirubin 0.3 AST 28 ALT 40 Alkaline Phosphatase 83 Troponin I < 0.02 NT-Pro-B Natriuret Pep Total Protein 7.2 Albumin 3.6 Triglycerides Total Cholesterol LDL Cholesterol Direct HDL Cholesterol TSH 07/12/18 07/11/18 07/11/18 04:58 20:40 20:40 WBC 6.20 RBC 4.45 Hgb 14.1 Hct 41.1 MCV 92.4 MCH 31.7 MCHC 34.3 RDW 13.1 Plt Count 235 MPV 10.5 Immature Gran % 0.3 Neutrophils % 43.7 Lymphocytes % 44.8 Monocytes % 6.9 Eosinophils % 3.7 Basophils % 0.6 Absolute Neutrophils 2.70 Absolute Lymphocytes 2.78 Absolute Monocytes 0.43 Absolute Eosinophils 0.23 Absolute Basophils 0.04 PT 9.3 INR 0.9 APTT 21.4 D-Dimer 920 H Sodium Potassium Chloride Carbon Dioxide Anion Gap BUN Creatinine Estimated GFR/1.73 m2 Glucose Calcium Magnesium Total Bilirubin AST ALT Alkaline Phosphatase Troponin I Cancelled NT-Pro-B Natriuret Pep Total Protein Albumin Triglycerides 169 H Total Cholesterol 223 H LDL Cholesterol Direct 138 H HDL Cholesterol 62 H TSH 2.70 07/11/18 20:40 WBC RBC Hgb Hct MCV MCH MCHC RDW Plt Count MPV Immature Gran % Neutrophils % Lymphocytes % Monocytes % Eosinophils % Basophils % Absolute Neutrophils Absolute Lymphocytes Absolute Monocytes Absolute Eosinophils Absolute Basophils PT INR APTT D-Dimer Sodium 143 Potassium 4.1 Chloride 103 Carbon Dioxide 31.8 Anion Gap 8.2 BUN 17 Creatinine 1.08 H Estimated GFR/1.73 m2 50.16 Glucose 123 H Calcium 9.9 Magnesium 2.2 Total Bilirubin 0.3 AST 20 ALT 39 Alkaline Phosphatase 88 Troponin I < 0.02 NT-Pro-B Natriuret Pep 123 Total Protein 8.0 Albumin 4.0 Triglycerides Total Cholesterol LDL Cholesterol Direct HDL Cholesterol TSH [facility] Social History Smoking/Tobacco Use Status: Never Alcohol Intake: never Drug use: Never Do you feel safe at home: Yes Do you feel safe in your relationship?: Yes
[2018-07-12] MEDS: amLODIPine 5 MG TAB PO (17:49)
== END 2018-07-12 18:05 | disposition home or self-care (01) ==
LOC: ER 07-12 00:35 → ICU 07-12 02:32
PROVIDERS: Admitting Provider Family Medicine; Emergency Provider Emergency Medicine; PCP Nurse Practitioner Family; Visit Provider Internal Medicine
DX: R07.89 Other chest pain (principal); R10.13 Epigastric pain; I10 Essential (primary) hypertension; K21.9 Gastro-esophageal reflux disease without esophagitis
CPT/HCPCS: 36415; 71275; 78452; 80053; 80061; 83721; 93005; 93016; 93018; 96360; 96361; 99217; 99220; 99285; 71045; 76700; 83735; 83880; 84443; 84484; 85025; 85379; 85610; 85730; 93010; 93017; 99284; G0378; J1644; J3490